=== PATIENT | male | born 1980 | race Caucasian/White ===

== ENCOUNTER 2022-05-26 19:43 | Emergency (ER) | payer OTHER, SELFPAY ==
[2022-05-26 19:51] VITALS: BP 167/103; PULSE 70; RESP 18; TEMP 36.4; O2SAT 96; BMI 45.8
--- NOTE | 2022-05-26 21:50 | W.ED.EXTPRO ---
HPI - Extremity Problem General: Chief complaint: Extremity Injury, Upper Stated complaint: RT arm injury Time Seen by Provider: 05/26/22 21:37 History of Present Illness: 41-year-old male patient comes in today with injury to the right biceps. Patient was using a ratchet at work when he felt a pop in his right biceps area. Patient now has a knot in the lower aspect of his right biceps. Review of Systems General: Reports: 10 or more systems reviewed and unremarkable except in HPI and below Musc: Reports: extremity pain and extremity swelling PFS ED PFSH: Social History (Updated 11/18/19 @ 13:11 by Denita He LPN) Smoking and tobacco status: never smoked Physical Exam Const: COMMON NORMALS: alert Eye: GENERAL EYE: appearance normal, both eyes and all related structures Neck/C-Spine: COMMON NORMALS: full ROM Resp: COMMON NORMALS: normal respiratory effort and clear to auscultation bilaterally AUSCULTATION: clear to auscultation bilaterally Cardio: COMMON NORMALS: regular rate and regular rhythm RATE: regular rate RHYTHM: regular rhythm Back/Pelvis: COMMON NORMALS: thoracic and lumbar spine normal to inspection Extremity: RIGHT UPPER EXTREMITY: Yes upper arm (Distal biceps tenderness and swelling) Right upper arm: Yes inspection, Yes palpation and Yes neurovascular exam Neuro: SENSORIUM/ORIENTATION: Yes alert Course Vital Signs: Vital signs: Vital Signs Temperature 97.5 F L 05/26/22 19:51 Pulse Rate 70 05/26/22 19:51 Respiratory Rate 18 05/26/22 19:51 Blood Pressure 167/103 05/26/22 19:51 Pulse Oximetry 96 05/26/22 19:51 MDM - Extremity (Nontraumatic) Medical Decision Making 41-year-old male patient comes in today with injury to the right upper arm. On exam patient has tenderness and swelling to the distal right biceps. Vital signs are normal. Differential diagnosis includes but not limited to tendon rupture, muscle strain, muscle tear. Reviewed exam with patient with recommendations for treatment and follow-up. Patient had normal range of motion suspect patient may need to have physical therapy and further treatment and evaluation. Place patient on light duty recommended recheck with Workmen's Comp. provider. Discharge Plan Discharge Patient Disposition: Home Clinical Impression: Biceps muscle tear Qualifiers: Encounter type: initial encounter Laterality: right Qualified Code(s): S46.211A - Strain of muscle, fascia and tendon of other parts of biceps, right arm, initial encounter Condition: Stable Prescriptions: No Action No Known Home Medications 0RF colchicine 0.6 mg capsule 1.2 mg PO ONCE Qty: 3 0RF Rx Instructions: 1.2mg PO X 1; then 0.6mg PO 1 hour later X1 Discharge Orders: Discharge ED (Routine); Ordered 05/26/22 Ordered By: Polo Moreland Referrals: Fernando Domínguez MD [Primary Care Provider] - Discharge Diet: Usual diet Discharge Activity: Increase activity as tolerated Patient Instructions: Muscle Strain (ED) Activity Restrictions/Additional Instructions: Home and rest. Light activity. Avoid heavy straining or heavy lifting until cleared by other provider. 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 Return to ER for new concerns. 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
[2022-05-26 21:59] VITALS: RESP 18
== END 2022-05-26 21:59 | disposition home or self-care (01) ==
PROVIDERS: Emergency Provider Nurse Practitioner Family; PCP Family Medicine
DX: S46.211A Strain of muscle, fascia and tendon of other parts of biceps, right arm, initial encounter (principal); X50.9XXA Other and unspecified overexertion or strenuous movements or postures, initial encounter
CPT/HCPCS: 99283